=== PATIENT | female | born 1965 | race Two or more races ===

== ENCOUNTER 2018-10-20 23:46 | Emergency (ER) | payer MEDICAID ==
[~2018-10-20] VITALS: Ht 167.6 cm; Wt 77.1 kg
[2018-10-21 00:17] VITALS: BP 133/86
[2018-10-21] MEDS ORDERED: KETOROLAC TROMETH 60MG/2ML VIAL IM ONE (05:00)
[2018-10-21] MEDS ORDERED: methylPREDNISolone SOD SUCC 125 MG/2 ML VL IM ONE (05:00)
== END 2018-10-21 06:00 | disposition home or self-care (01) ==
LOC: ER 23:56
DX: M62.838 Other muscle spasm (principal); M54.2 Cervicalgia; M54.6 Pain in thoracic spine
CPT/HCPCS: 70360; 96372; 99283; J1885; J2930

== ENCOUNTER 2021-12-17 21:04 | Emergency (ER) | payer MEDICAID ==
[~2021-12-17] VITALS: Ht 154.9 cm; Wt 77.1 kg
[2021-12-17] MEDS ORDERED: EPINEPHrine HCL 1 MG/1 ML AMP IM ONE (21:15)
[2021-12-17] MEDS ORDERED: FAMOTIDINE (10MG/ML) 2ML VL IV ONE (21:15)
[2021-12-17] MEDS ORDERED: ALBUTEROL SULF 2.5 MG/0.5ML(0.5%) NEB SOLN NEB ONE (21:15)
[2021-12-17] MEDS ORDERED: diphenhdrAMINE HCL 50 MG/1 ML VL IV ONE (21:15)
[2021-12-17] MEDS ORDERED: methylPREDNISolone SOD SUCC 125 MG/2 ML VL IV ONE (21:15)
[2021-12-17 21:30] VITALS: BP 120/78
[2021-12-17] MEDS ORDERED: amLODIPine BESYLATE 5 MG TAB PO ONE (22:30)
[2021-12-18] MEDS ORDERED: FAMO20TA10 PO (00:08)
[2021-12-18] MEDS ORDERED: PRED20TA2 PO (00:08)
[2021-12-18] MEDS ORDERED: DIPH25CA66 PO (00:08)
== END 2021-12-18 00:22 | disposition home or self-care (01) ==
LOC: ER 21:04
DX: T78.2XXA Anaphylactic shock, unspecified, initial encounter (principal); X58.XXXA Exposure to other specified factors, initial encounter
CPT/HCPCS: 71045; 93005; 94640; 96372; 96374; 96375; 99284; J0171; J1200; J2930; J3490

== ENCOUNTER 2023-09-16 17:18 | Emergency (ER) | payer MEDICAID ==
[~2023-09-16] VITALS: Ht 170.2 cm; Wt 72.7 kg
[~2023-09-16 17:18] MED LIST: DIPH25CA66 PO; FAMO20TA10 PO; PRED20TA2 PO
[2023-09-16] MEDS ORDERED: NAP500T PO (23:24)
[2023-09-16] MEDS ORDERED: CYCL-837 PO (23:24)
[2023-09-17] MEDS: KETOROLAC TROMETH 60MG/2ML VIAL IM ONE (00:24)
[2023-09-17 08:16] VITALS: BP 127/81; PULSE 75; RESP 22; TEMP 98; O2SAT 100
== END 2023-09-17 00:35 | disposition home or self-care (01) ==
LOC: EDBD 17:18 → ER 17:18
DX: S16.1XXA Strain of muscle, fascia and tendon at neck level, initial encounter (principal); W22.8XXA Striking against or struck by other objects, initial encounter; Y93.89 Activity, other specified; Y92.89 Other specified places as the place of occurrence of the external cause; Y99.8 Other external cause status
CPT/HCPCS: 96372; 99283; J1885

== ENCOUNTER 2024-10-09 22:32 | Emergency (ER) | payer MEDICAID ==
[~2024-10-09] VITALS: Ht 167.6 cm; Wt 77.3 kg
[~2024-10-09 22:32] MED LIST changes: +CYCL-837 PO; +NAP500T PO
[2024-10-10] MEDS ORDERED: ALBU108A5 IN (02:25)
[2024-10-10] MEDS ORDERED: AZIT-185 PO (02:25)
--- NOTE | 2024-10-10 02:26 | ED.PDOC ---
SOB-HPI HPI Comments Patient is a pleasant 59-year-old Turkmen-speaking only female who was brought to the ED by her for evaluation of shortness a breath and chest pain concerns for the past three days. Patient states the chest pain has been intermittent and has been related to shortness a breath concerns rather than heart issues. Patient states the pain has been pleuritic in nature. Patient denies any fever nausea or vomiting. Patient has a history of hypertension. Patient was mildly hypertensive at arrival. Chief Complaint: Chest Pain Time Seen by MD: 22:58 Reviewed notes: Nurses Notes Information Source: Patient, Spouse Mode of Arrival: Wheelchair Severity: Moderate Timing: Days Duration: Since onset Context: At Rest PE Risk Factors: None History of: None Prehospital treatment: None Modifying Factors: Nothing Quality: Burning If cough with SOB: Non-Productive Past Medical History PAST MEDICAL HISTORY: HTN Surgical History: Denies all surgeries HEAVY REPAIRER History: No Pertinent HEAVY REPAIRER History Family History Family History: Unknown Social History Smoker: Non-Smoker Alcohol: Denies ETOH Use Drugs: Denies Drug Use Lives In: Home Constitutional: denies: chills, diaphoresis, fatigue, fever, malaise, sweats, weakness, others EENTM: denies: blurred vision, double vision, ear bleeding, ear discharge, ear drainage, ear pain, ear ringing, eye pain, eye redness, hearing loss, mouth pain, mouth swelling, nasal discharge, nose bleeding, nose congestion, nose pain, photophobia, tearing, throat pain, throat swelling, voice changes, others Respiratory: reports: SOB at rest; denies: cough, hemoptysis, orthopnea, shortness of breath, SOB with excertion, stridor, wheezing, others Cardiovascular: reports: chest pain; denies: dizzy spells, diaphoresis, Dyspnea on exertion, edema, irregular heart beat, left arm pain, lightheadedness, palpitations, PND, syncope, others Gastrointestinal: denies: abdomen distended, abdominal pain, blood streaked bowels, constipated, diarrhea, dysphagia, difficulty swallowing, hematemesis, melena, nausea, poor appetite, poor fluid intake, rectal bleeding, rectal pain, vomiting, others Genitourinary: denies: abnormal vagina bleeding, burning, dyspareunia, dysuria, flank pain, frequency, hematuria, incontinence, pain, , vagina discharge, urgency, others Neurological: denies: dizziness, fainting, headache, left sided numbness, left sided weakness, numbness, paresthesia, pre-existing deficit, right sided numbness, right sided weakness, seizure, speech problems, tingling, tremors, weakness, others Musculoskeletal: denies: back pain, gout, joint pain, joint swelling, muscle pain, muscle stiffness, neck pain, others Integumetry: denies: bruises, change in color, change in hair/nails, dryness, laceration, lesions, lumps, rash, wounds, others Allergic/Immunocompromised: denies: Difficulty Healing, Frequent Infections, Hives, Itching, others Hematologic/Lymphatic: denies: anemia, blood clots, easy bleeding, easy bruising, swollen glands, others Endocrine: denies: excessive hunger, excessive sweating, excessive thirst, excessive urination, flushing, intolerance to cold, intolerance to heat, unexplained weight gain, unexplained weight loss, others Psychiatric: denies: anxiety, bipolar disorder, depression, hopeless, panic disorder, schizophrenia, sleepless, suicidal, others Physical Exam General Appearance: Mild Distress (Mild distress due to chest pain and shortne ss a breath concerns.), Normal HEENT: Normal ENT Inspection, Pharynx Normal, TMs Normal Neck: Full Range of Motion, Non-Tender, Normal, Normal Inspection Respiratory: Chest Non-Tender, Lungs Clear, No Accessory Muscle Use, No Respiratory Distress, Normal Breath Sounds, Other (Unremarkable auscultation bilateral lung aguilar.) Cardiovascular: No Edema, No JVD, No Murmur, No Gallop, Normal Peripheral Pulses, Regular Rate/Rhythm Breast Exam: Deferred Gastrointestinal: No Organomegaly, Non Tender, No Pulsatile Mass, Normal Bowel Sounds, Soft Genitalia: Deferred Pelvic: Deferred Rectal: Deferred Extremities: No calf tenderness, Normal capillary refill, Normal inspection, No rmal range of motion, Non-tender, No pedal edema Neurologic: Alert, propellant charge zone assembler II-XII nml as Tested, No Motor Deficits, Normal Affect, Normal Mood, No Sensory Deficits Cerebellar Function: Normal Reflexes: Normal Skin: Dry, Normal Color, Warm Lymphatic: No Adenopathy Was a procedure done? Was a procedure done?: No Differential Dx Differential Diagnosis: Asthma, Bronchitis, COPD, Pneumonia, URI X-Ray, Labs, Meds, VS Vital Signs Date Time Temp Pulse Resp B/P (MAP) Pulse Ox O2 Delivery O2 Flow Rate FiO2 10/09/24 22:45 98.2 85 20 149/96 (113) 98 Lab Test 10/10/24 00:31 10/09/24 23:24 Range/Units Troponin I High Sensitivity 3 L 3 L </=34 ng/L X-Ray, Labs, Meds, VS Comment Laboratories studies for troponins were unremarkable for any acute cardiac concerns. Follow up patient will be given a breathing treatment and a dose of azithromycin to address a possible bacterial bronchitis concern. Advised patient utilize antibiotics as directed until completion. Supplemental medication as needed. Time of 1ST Reevaluation: 02: Reevaluation 1ST: Improved Consultation: PCP Patient Education/Counseling: Diagnosis, Treatment Family Education/Counseling: Diagnosis, Treatment Departure 1 Departure Time of Disposition: :24 Impression: Primary Impression: Bronchitis Disposition: HOME / SELF CARE / HOMELESS Condition: Stable Additional Instructions: Advised patient utilize antibiotics as directed until completion as well as additional medication as needed. Patient should practice good hydration and healthy nutrition throughout illness event. e-Prescriptions Albuterol Sulfate (Albuterol Sulfate Hfa) 108 Mcg/Act Aer 108 MCG IN Q4HP PRN, #1 AER Prov: PIERRE CURRY PAC 10/10/24 Azithromycin (ZITHROMAX TABLET) 250 Mg Tb 250 MG PO DAILY for 4 Days, #4 TAB Prov: PIERRE CURRY PAC 10/10/24 Discharged With: Self, Relative Critical Care Note Critical Care Time?: No Stability Stability form required: No Heart Score Heart Score: Heart Score Response (Comments) Value History N/A 0 EKG N/A 0 Age N/A 0 Risk Factors N/A 0 Troponin N/A 0 Total 0 PIERRE CURRY PAC Oct 10, 2024 02:26
[2024-10-10] MEDS: IPRATROPIUM BROM 0.5 MG/2.5ML INH SOL NEB ONE (02:30)
[2024-10-10] MEDS: ALBUTEROL SULF 2.5 MG/0.5ML(0.5%) NEB SOLN NEB ONE (02:30)
[2024-10-10 03:00] VITALS: PULSE 68; RESP 20; O2SAT 96
[2024-10-10] MEDS: AZITHROMYCIN 250 MG TAB PO ONE (03:11)
[2024-10-10] MEDS: DexAMETHasone SOD PHOS 10MG/1ML VIAL INJ IM ONE (03:11)
[2024-10-10 03:24] VITALS: BP 142/81; PULSE 72; RESP 18; TEMP 97.9; O2SAT 96
--- NOTE | 2024-10-11 08:16 | ECG ---
[facility] Test Date: 2024-10-09 Test Time: 23:14:23 Pat Name: MARY ELLEN AUSTIN Department: ER Room: Gender: F Figure Clerk: : 1965 Requested By: PIERRE CURRY Order Number: [id number] Reading MD: Chad Kay Measurements Intervals [place] Rate: 86 P: 55 CO: 126 QRS: 62 QRSD: 102 T: 34 QT: 371 QTc: 444 Interpretive Statements Sinus rhythm RSR' in V1 or V2, right VCD or RVH Electronically Signed On 10-11-2024 8:26:29 PST by Chad Kay Please click the below link to view image of tracing.
== END 2024-10-10 04:01 | disposition home or self-care (01) ==
LOC: ER 22:32
DX: J40 Bronchitis, not specified as acute or chronic (principal); I10 Essential (primary) hypertension
CPT/HCPCS: 36415; 84484; 93005; 94640; 96372; 99284; J1100